=== PATIENT | female | born 1990 ===

== ENCOUNTER 2019-08-08 14:00 | Emergency (ER) | payer BC ==
--- NOTE | 2019-08-08 14:42 | UC ---
FLU HPI - HPI Summary HPI Summary: PATIENT STARTED HAVING LIGHT COUGH AND ST LAST EVENING, COUGHING more today, no fever at home. works at Location as [employer]. no known pos COVID exposure, no recent travel did have flu vacc this season - History of Current Complaint Chief Complaint: UCRespiratory Stated Complaint: COUGH Time Seen by Provider: 08/08/19 14:29 Hx Obtained From: Patient Hx Last Menstrual Period: IUD ?: No Onset/Duration: Sudden Onset Severity Currently: None Pain Intensity: 0 Associated Signs & Symptoms: Positive: Cough, Sore Throat. Negative: Fever, Nasal Congestion, Headache, Vomiting - Allergy/Home Medications Allergies/Adverse Reactions: Allergies Allergy/AdvReac Type Severity Reaction Status Date / Time No Known Allergies Allergy Verified 08/08/19 14:32 Home Medications: Home Medications NK [No Home Medications Reported] 08/08/19 [History Confirmed 08/08/19] PMH/Surg Hx/FS Hx/Imm Hx Previously Healthy: Yes - Surgical History Surgical History: None - Family History Known Family History: Positive: None - Social History Occupation: Employed Full-time Lives: With Family Alcohol Use: Occasionally Substance Use Type: None Smoking Status (MU): Never Smoked Tobacco Review of Systems All Other Systems Reviewed And Are Negative: Yes Constitutional: Positive: Negative. Negative: Fever, Chills, Fatigue Skin: Positive: Negative ENT: Positive: Sore Throat. Negative: Sinus Congestion Respiratory: Positive: Cough. Negative: Shortness Of Breath Cardiovascular: Positive: Negative. Negative: Chest Pain Musculoskeletal: Positive: Negative Neurological/Mental Status: Positive: Negative. Negative: Headache Psychological: Positive: Negative Is Patient Immunocompromised?: No Physical Exam - Summary Physical Exam Summary: To decrease the risk of transmission of possible COVID 19 this interview was done with telemedicine which does limit the physical examination Triage Information Reviewed: Yes Appearance: Well-Appearing, No Pain Distress, Well-Nourished Vital Signs Reviewed: Yes Eyes: Positive: Conjunctiva Clear ENT: Positive: Nasal congestion Respiratory: Positive: Lungs clear - as per nurse's assessment during telemedicine, No respiratory distress Neurological Exam: Normal Neurological: Positive: Alert Psychological Exam: Normal Flu Course/Dx - Course Course Of Treatment: Strep and flu were negative. Patient has had her symptoms for 2 days Based on patients symptoms, this could also be COVID 19 virus and therefore a COVID 19 test was obtained. Patient will follow-up with [facility]. If the patient starts to feel worse they agree to report to the emergency department. - Differential Dx/Diagnosis Differential Diagnosis/HQI/PQRI: Bronchitis, Influenza, Upper Respiratory Infection, Other - COVID 19 Provider Diagnosis: Upper respiratory infection Discharge ED - Sign-Out/Discharge Documenting (check all that apply): Patient Departure All imaging exams completed and their final reports reviewed: No Studies - Discharge Plan Condition: Good Disposition: HOME Patient Education Materials: Upper Respiratory Infection (ED) Forms: COVID-19 Tested & Isolation Referrals: No Primary Care Phys,NOPCP [Primary Care Provider] - Additional Instructions: Your Strep and flu tests were negative. Given your symptoms, this could also be COVID 19 virus and therefore a COVID 19 test was obtained. Please follow-up with [facility]. If your symptoms worsen and you start to have difficulty breathing please call the Emergency room to alert them that you will be arriving for evaluation Use Tylenol for fever and pain as directed - Billing Disposition and Condition Condition: GOOD Disposition: Home - Attestation Statements Provider Attestation: I was available for consult. This patient was seen by the [facility]. The patient was not presented to , seen by or examined by -Agus Lewis MD
[2019-08-08 15:03] VITALS: BP 114/70
[2019-08-08 15:06] LABS: Influenza A Molecular Negative (Negative); Influenza B Molecular Negative (Negative)
== END 2019-08-08 15:47 | disposition home or self-care (01) ==
LOC: UCEAST 14:00
DX: J06.9 Acute upper respiratory infection, unspecified (principal)
CPT/HCPCS: 87651; 99201; G0463